=== PATIENT | male | born 1950 | race Caucasian/White ===

== ENCOUNTER 2018-07-19 15:50 | Outpatient (CLI) | payer OTHER ==
--- NOTE | 2018-07-19 16:47 | RAD ---
CERVICAL SPINE: Date: 07/19/18 HISTORY: Cervical disc degeneration. COMPARISON: None. FINDINGS: On the open-mouth projection, limited evaluation of odontoid process. Appropriate articulation of the lateral masses of C1 and C2 On the AP projection, there is multilevel facet hypertrophy. No malalignment. In the neutral lateral position, cervical spine is adequately assessed from C1 through C6. Limited ev aluation of the remainder of the cervical spine, as well as cervicothoracic junction. Moderate degene rative disc disease at C5-C6. No prevertebral soft tissue swelling. Predental space is normal. There is 2.7 mm of anterolisthesis of C4 upon C5 in the neutral position. Upon flexion, there is 5.2 mm of anterolisthesis of C4 upon C5. Upon extension, there is 2.6 mm of anterolisthesis. IMPRESSION: 1. Spondylolisthesis of C4 upon C5 (Grade I). 2. Moderate degenerative change at C5-C6. Limited evaluation of distal cervical spine and cervicotho racic junction. POS: [facility]
== END 2018-07-19 15:51 | disposition home or self-care (01) ==
LOC: BICRAD 15:50
PROVIDERS: ATTEND Neurological Surgery
DX: M50.322 Other cervical disc degeneration at C5-C6 level (principal); M47.12 Other spondylosis with myelopathy, cervical region; M48.02 Spinal stenosis, cervical region; M43.12 Spondylolisthesis, cervical region
CPT/HCPCS: 72050

== ENCOUNTER 2018-08-03 07:11 | Outpatient (CLI) | payer MEDICARE ==
[2018-08-03 11:22] LABS: Hemoglobin 15.8 g/dL (14.0-18.0); Mean Corpuscular HGB CONC 32.5 g/dL (32.0-36.0); Mean Corpuscular Hemoglobin 31.2 pg (27.0-31.0); Mean Corpuscular Volume 95.8 fL (78.0-98.0); Mean Platelet Volume 7.2 fL (7.4-10.4); Platelet Count 268 thou/uL (130-400); RBC Distribution Width 11.6 % (11.5-14.5); Red Blood Cell (RBC) Count 5.08 mill/uL (4.70-6.10); White Blood Cell (WBC) Count 8.1 thou/uL (4.8-10.8)
[2018-08-03 11:28] LABS: PTT 30.5 SEC (22.9-36.1); Prothrombin Time 13.3 SEC (12.0-14.7)
== END 2018-08-03 07:12 | disposition home or self-care (01) ==
LOC: LABBT 07:11
PROVIDERS: ATTEND Neurological Surgery
DX: Z01.812 Encounter for preprocedural laboratory examination (principal); M47.12 Other spondylosis with myelopathy, cervical region; M48.02 Spinal stenosis, cervical region
CPT/HCPCS: 85027; 85610; 85730

== ENCOUNTER 2018-08-03 11:30 | Inpatient (IN) | payer MEDICARE ==
--- NOTE | 2018-08-03 08:12 | HP ---
HISTORY OF PRESENT ILLNESS: This is a 67-year-old man, who reports to our office for evaluation of right arm pain. The patient states that he started experiencing these symptoms since 03/2018. The patient states he does not remember any injury at that time. He has been having what feels like a hundred ants burning the back of his arms, primarily from his elbow down to his wrist and up from there. He also complains of pain behind the right shoulder blade. Currently, the patient denies any decrease in fine motor skills or imbalance. The patient has been seeing for cervical injections as well as taking gabapentin. REVIEW OF SYSTEMS: A 10-point review of systems has been completed and is negative other than stated in the above HPI. PAST MEDICAL HISTORY: Hyperlipidemia, peripheral vascular disease, chewed tobacco, cataracts. PAST SURGICAL HISTORY: Cataract surgery, right carpal tunnel release in 2010, right leg angioplasty in 2001. FAMILY HISTORY: Mother is , diagnosed with cancer. SOCIAL HISTORY: The patient is a former smoker, quit in 1998. He uses alcohol. He does not use any other illicit drugs. He is sexually active. with two children. MEDICATIONS: 1. Aspirin 81 mg. 2. One-A-Day multivitamin [facility]. 3. Cilostazol. 4. Gabapentin. ALLERGIES: NO KNOWN DRUG ALLERGIES. PHYSICAL EXAMINATION: CONSTITUTION: The patient is alert and oriented, afebrile, normotensive, does not appear to be in any visible distress. HEENT: Head is normocephalic and atraumatic. Pupils are equal, round, reactive to light. Extraocular movements are intact. Hearing is intact. Moist mucous membranes. NECK: Normal, soft, supple. No masses are noted. Range of motion is intact and nonpainful. NEUROLOGIC: Awake, alert, oriented x3. Memory, attention, fund of knowledge, and language are normal. Cranial nerves: Cranial nerves 2 through 12 are grossly intact. Upper extremities, 5/5 bilateral strength in deltoids, biceps, wrist extension, 4/5 bilateral triceps, finger extension and finger intrinsics. Noticeable atrophy of bilateral hands. Negative Tinel's, negative Spurling's, Tandem walk 2 steps 5 steps. Brisk reflexes. IMAGING DATA: Cervical MRI, significant central stenosis at C3-C4, C4-C5, C5-C6. There is left foraminal narrowing at C6-C7. ASSESSMENT AND PLAN: Cervical spinal stenosis with degenerative disk disease with myelopathy. Dr. Andrade has offered surgery in C3 through C6 ACDF. The patient then consented and understands and states that he is willing to proceed with surgery. Job ID: [id number]
[2018-08-03 10:46] VITALS: BMI 26.6
[2018-08-06] MEDS ORDERED: Sodium Chloride 0.9% 10 ML ONE (06:16)
[2018-08-06] MEDS ORDERED: Thrombin 5000 UNITS/5 ML VIAL ONE (06:16)
[2018-08-06] MEDS ORDERED: CEFAZOLIN 2 GM/50 ML BAG ONE (06:39)
[2018-08-06] MEDS ORDERED: Fentanyl 100 MCG/2 ML VIAL ONE ×4 (06:57→12:24)
[2018-08-06] MEDS ORDERED: Acetaminophen 650 MG Suppository PR PRN (11:15)
[2018-08-06] MEDS ORDERED: Mag-Al 1200 mg/1200 mg/30 ML UDCUP PO PRN (11:15)
[2018-08-06] MEDS ORDERED: Ondansetron PF 4 MG/2 ML Vial IVP PRN (11:15)
[2018-08-06] MEDS ORDERED: CEFAZOLIN/Water 2 GM/20 ML SYRINGE SLOW IVP SCH (11:15)
[2018-08-06] MEDS ORDERED: diphenhydrAMINE 25 MG CAP PO PRN (11:15)
[2018-08-06] MEDS ORDERED: Promethazine 25 MG TAB PO PRN (11:15)
[2018-08-06] MEDS ORDERED: Milk Of Magnesia 30 ML UDCUP PO PRN (11:15)
[2018-08-06] MEDS ORDERED: tiZANidine HCl 4 MG TAB PO PRN (11:15)
[2018-08-06] MEDS ORDERED: diphenhydrAMINE 50 MG/ML VIAL IVP PRN (11:15)
[2018-08-06] MEDS ORDERED: Acetaminophen 325 MG TAB PO PRN (11:15)
[2018-08-06] MEDS ORDERED: Morphine 4 MG/ML VIAL SLOW IVP PRN ×2 (11:15)
[2018-08-06] MEDS ORDERED: Acetaminophen/Codeine 30-300mg Tablet PO PRN (11:15)
[2018-08-06] MEDS ORDERED: Promethazine HCl 25 MG/ML VIAL IM PRN (11:17)
[2018-08-06] MEDS ORDERED: Meperidine HCl/PF 25 MG/ML VIAL SLOW IVP PRN (11:17)
[2018-08-06] MEDS ORDERED: HYDROmorphone 2 MG/ML VIAL SLOW IVP PRN (11:17)
[2018-08-06] MEDS ORDERED: Promethazine HCl 25 MG/ML VIAL SLOW IVP PRN (11:17)
[2018-08-06] MEDS ORDERED: Non-Formulary Item 1 EACH (Acetaminophen [Tylenol] 650 MG) PO PRN (11:19)
--- NOTE | 2018-08-06 11:42 | OP ---
DATE OF PROCEDURE: 08/06/2018 MICROELECTRONICS ASSEMBLER: Ariane Dowell PA-C PREOPERATIVE INDICATION: Prevent further neurological deterioration. PREOPERATIVE DIAGNOSES: Intervertebral disk disease with cord compression and myelopathy, C3-C4, C4-C5, and C5-C6. POSTOPERATIVE DIAGNOSES: Intervertebral disk disease with cord compression and myelopathy, C3-C4, C4-C5, and C5-C6. PROCEDURES PERFORMED: Anterior cervical diskectomy, intervertebral arthrodesis, placement of intervertebral biomechanical device, anterior cervical plating, C3-C4, C4-C5, and C5-C6, local morselized autograft, morselized allograft, and operating microscope. PREOPERATIVE MEDICATION: Ancef 2 g IV. DRAIN NUMBER: Zero. DRAIN TYPE: None. DESCRIPTION OF PROCEDURE: The patient was brought to the operating room. General endotracheal anesthesia was induced. The patient was positioned carefully on the operating table with his head supported by a gel-filled donut-shaped headrest. A lateral fluoro radiograph was used to plan an incision. The right side of the neck was sterilely prepped and draped. We opened with a 10 blade knife and controlled bleeding with bipolar cautery. We dissected sharply to the platysma and cut this muscle in line with our incision. We continued dissecting medial to the sternocleidomastoid and lateral to the trachea and esophagus until we arrived at the prevertebral space. We placed a marker at C3-C4 and took a lateral fluoro radiograph to confirm the levels upon which we were operating. We then elevated the longus colli muscles off the anterior surface of C3, C4, C5, and C6. We placed self-retaining retractors beneath these muscles. We placed distraction pins at C3 and C5, and we distracted across the intervening interspaces with the [place] distractor. We incised the interspaces with a 15 blade knife and removed disk contents using curettes and rongeurs. As we approached the posterior longitudinal ligament, we brought the operating microscope into the field. Under microscopic magnification and using microsurgical techniques, we carefully removed the remainder of the intervertebral disk. We accessed the ventral epidural space with a microcurette and using [place] rongeurs, we removed posterior longitudinal ligament, posterior osteophytes, and the remainder of the disk material across the entire interspace from one neuro foramen all the way to the other at C3-C4 and again at C4-C5. At the completion of the decompression, there was no longer any dural impingement. We prepared the endplates for grafting using curettes and measured the height of each of these two interspaces to 8 mm. Osteophytes removed during our decompression were cleaned of soft tissue, morcellized, and added to demineralized bone matrix to form a fusion substrate. Two separate 8 mm PEEK intervertebral grafts were brought into the field. These were loaded with our fusion substrate and advanced into the respective interspaces under radiographic guidance to the appropriate depth. We then removed our distraction pin from C3 and moved it down to C6. The self-retaining lateral retractor was moved under the longus colli muscles at C5-C6 and a [place] distractor distracted across the interspace. Under the operating microscope, we incised the disk space, removed disk contents, accessed the ventral epidural space with a microcurette, and removed posterior osteophytes and posterior longitudinal ligament with [place] rongeurs across the entire interspace. At the completion of our decompression at C5-C6, both neuro foramina were widely decompressed and the dura had no impingement across the entire interspace. We prepared the endplates for grafting with curettes and measured the height of the interspace to 7 mm. A 7 mm PEEK intervertebral graft was brought into the field. This was loaded with our mixture of demineralized bone matrix and morselized autograft and advanced into the interspace under radiographic guidance to the appropriate depth. We then took the operative microscope out of the field and removed our distraction pins. A 57 mm anterior cervical plate was brought into the field. We drilled the pilot manager holes through the plate into the vertebral bodies from C3-C6 and we affixed the plate using 14 and 16 mm screws. We used fixed angle screws at C6 and variable angle screws at C4, C5, and C6. We engaged the locking mechanism over each of the eight screws. AP and lateral fluoro radiographs confirmed adequate positioning of our instrumentation. We irrigated copiously with bacitracin irrigation. We closed the wound in anatomical layers and we applied a sterile dressing. This was a clean case, no contamination. Job ID: [id number]
[2018-08-06] MEDS ORDERED: PHENYLEPHRINE-NS 100 MCG/ML 10 ML SYRINGE ONE (15:21)
[2018-08-06] MEDS ORDERED: Glycopyrrolate 0.2 MG/ML 5 ML SYRINGE ONE (15:21)
[2018-08-06] MEDS ORDERED: Ketorolac Tromethamine 30 MG/ML VIAL ONE (15:21)
[2018-08-06] MEDS ORDERED: PROPOFOL 200 MG/20 ML VIAL ONE (15:21)
[2018-08-06] MEDS ORDERED: Lidocaine 1% PF 5 ML VIAL ONE (15:21)
[2018-08-06] MEDS ORDERED: Dexamethasone 20 MG/5 ML VIAL ONE (15:21)
[2018-08-06] MEDS ORDERED: ePHEDrine 50 MG/ML VIAL ONE (15:21)
[2018-08-06] MEDS ORDERED: Ondansetron PF 4 MG/2 ML Vial ONE (15:21)
[2018-08-06] MEDS ORDERED: Rocuronium Bromide 10 MG/ML (10ML VIAL) ONE (15:21)
[2018-08-06] MEDS: Gabapentin 300 MG CAP PO SCH ×2 (15:41→20:03)
[2018-08-06] MEDS: CEFAZOLIN 2 GM/50 ML-DEXTROSE 2 GM in Premix Bag 1 BAG IVPB SCH ×2 (15:41→22:13)
[2018-08-06] MEDS: Sodium Chloride 0.9% 1,000 ML IV SCH (18:16)
[2018-08-06] MEDS: Cilostazol 100 MG TAB PO SCH (18:16)
[2018-08-06] MEDS: Acetaminophen/Codeine 30-300mg Tablet PO PRN (22:12)
[2018-08-07] MEDS ORDERED: Chloraseptic Spray 180 ml Bottle PO PRN (02:50)
[2018-08-07] MEDS: Sodium Chloride 0.9% 1,000 ML IV SCH (05:48)
[2018-08-07] MEDS ORDERED: Tamsulosin HCl 0.4 MG CAP PO SCH (06:00)
[2018-08-07] MEDS: Cilostazol 100 MG TAB PO SCH (06:33)
[2018-08-07] MEDS: Acetaminophen/Codeine 30-300mg Tablet PO PRN (06:34)
--- NOTE | 2018-08-07 07:31 | PRG ---
DATE OF SERVICE: 08/07/2018 SUBJECTIVE: Mr. Spencer is one day out from a three-level ACDF for myelopathy. His arms and hands feel better. Yesterday, he was eating both lunch and dinner. Overnight, he began to have some swallowing difficulty. His neck feels a little bit swollen. OBJECTIVE: The patient has remained afebrile and his vital signs are stable. I examined the incision. There was no tension in the neck. There is no external swelling. Steri-Strips are well applied. The skin is well approximated. ASSESSMENT AND PLAN: I asked Mr. Spencer to use a chin tuck method for swelling. He is going to mobilize his trachea. We will use some ice to combat any swelling. I think that his swelling was normal immediately following surgery and worsened overnight suggest some swelling issues from having his retractor in there for such an extended period of time. This should improve and return to normal. He is going to attempt breakfast and if he is getting enough calories down, will discharge home this morning. We will follow up in 2 weeks. They have our office number should they need attention before then. We went over home going activity restrictions, wound care, and followup arrangements and they expressed their understanding. Job ID: [id number]
[2018-08-07 07:50] VITALS: BP 143/75; TEMP 97.9
[2018-08-07] MEDS ORDERED: Multivitamin W/ Minerals 1 TAB PO SCH (09:00)
[2018-08-07] MEDS ORDERED: Gabapentin 300 MG CAP PO SCH ×2 (09:00→21:00)
== END 2018-08-07 09:40 | disposition home or self-care (01) | DRG 472 ==
LOC: SURG A 08-06 05:42 → EDSTATUS 08-06 11:30 → SURG B 08-06 12:43
PROVIDERS: ADMIT Neurological Surgery; ATTEND Neurological Surgery
PROC: 0RG20A0 Fusion of 2 or more Cervical Vertebral Joints with Interbody Fusion Device, Anterior Approach, Anterior Column, Open Approach (ICD-10-PCS; principal; 2018-08-06)
PROC: 0RT30ZZ Resection of Cervical Vertebral Disc, Open Approach (ICD-10-PCS; 2018-08-06)
DX: M48.02 Spinal stenosis, cervical region (principal); M50.022 Cervical disc disorder at C5-C6 level with myelopathy; E78.5 Hyperlipidemia, unspecified; I73.9 Peripheral vascular disease, unspecified; Z98.49 Cataract extraction status, unspecified eye; Z98.890 Other specified postprocedural states; Z87.891 Personal history of nicotine dependence; Z79.82 Long term (current) use of aspirin
CPT/HCPCS: 76000; 85027; 85610; 85730; C1713; C1776; J0131; J1100; J1885; J2001; J2405; J2704; J3010; J3490

== ENCOUNTER 2018-10-02 15:03 | Outpatient (CLI) | payer MEDICARE ==
--- NOTE | 2018-10-02 15:24 | RAD ---
FCervical spine 5 views 10/02/2018 COMPARISON: 07/19/2018 HISTORY: Reevaluate cervical spine following surgery FINDINGS: Open-mouth odontoid view demonstrates a normal appearing dens and C1-2 articulation. Fronta l imaging demonstrates multilevel bilateral facet and uncovertebral osteophyte formation. Anterior di scectomy and fusion hardware is present at the C3-4, C4-5, and C5-6 levels. At C6-7 there is disc spa ce narrowing and anterior osteophyte formation. There is superior endplate irregularity involving C5 which may be on the basis of prior trauma or degenerative change. No significant anterolisthesis or r etrolisthesis. There is mild soft tissue swelling anterior to the inferior aspect of the fusion plate consistent with recent surgery. IMPRESSION: Postoperative and degenerative changes of the cervical spine as detailed above.
== END 2018-10-02 15:04 | disposition home or self-care (01) ==
LOC: TBSIIMAG 15:03
PROVIDERS: ATTEND Neurological Surgery
DX: M50.20 Other cervical disc displacement, unspecified cervical region (principal); M54.2 Cervicalgia; M47.812 Spondylosis without myelopathy or radiculopathy, cervical region; Z98.890 Other specified postprocedural states
CPT/HCPCS: 72040

== ENCOUNTER 2023-06-13 13:56 | Outpatient (CLI) | payer OTHER | END 2023-06-13 13:57 | disposition home or self-care (01) | LOC: BICCT 13:56 | PROVIDERS: ATTEND Psychiatry & Neurology Neurology | DX: G30.8 Other Alzheimer's disease (principal); G31.9 Degenerative disease of nervous system, unspecified; I67.82 Cerebral ischemia | CPT/HCPCS: 70450 ==

== ENCOUNTER 2023-06-30 08:15 | Observation (INO) | payer OTHER ==
[2023-06-30] MEDS ORDERED: LORazepam 2 MG/ML SYR.(CARPUJECT) ONE (08:29)
[2023-06-30 08:42] LABS: #Eosinphils 0.2 thou/uL (0.0-0.7); #Monocytes 0.7 thou/uL (0.11-0.59); #Neutrophils 5.5 thou/uL (1.40-6.50); %Basophils 0.3 % (0.0-1.0); %Eosinophils 2.3 % (0.0-10.0); %Lymphocytes 26.5 % (21.0-51.0); %Neutrophils 62.6 % (42.0-75.0); Hematocrit 42.4 % (42.0-52.0); Hemoglobin 13.9 g/dL (14.0-18.0); Mean Corpuscular HGB CONC 32.8 g/dL (32.0-36.0); Mean Corpuscular Hemoglobin 31.3 pg (27.0-31.0); Mean Corpuscular Volume 95.5 fl (78.0-98.0); Mean Platelet Volume 9.8 fL (7.4-10.4); Platelet Count 246 10x3/uL (130-400); RBC Distribution Width 12.7 % (11.5-14.5); Red Blood Cell (RBC) Count 4.44 mill/uL (4.70-6.10); White Blood Cell (WBC) Count 8.8 10x3/uL (4.8-10.8)
[2023-06-30 09:05] LABS: ALT (SGPT) 13 U/L (8-55); AST (SGOT) 20 U/L (5-34); Albumin 3.6 g/dL (3.4-4.8); Alkaline Phosphatase 96 U/L (40-110); Anion Gap 15 mmol/L (10-20); BUN (Urea Nitrogen) 13 mg/dL (8.4-25.7); Bilirubin, Total 0.4 mg/dL (0.2-1.2); Calc. Creatinine Clearance 0 mL/min (70-130); Calcium 8.6 mg/dL (7.8-10.44); Carbon Dioxide 20 mmol/L (23-31); Chloride 107 mmol/L (98-107); Estimated GFR 94; Globulin 2.8 g/dL (2.4-3.5); Glucose 96 mg/dL (83-110); Potassium 4.3 mmol/L (3.5-5.1); Protein, Total 6.4 g/dL (5.8-8.1); Sodium 138 mmol/L (136-145)
[2023-06-30] MEDS ORDERED: Boostrix 0.5 ML (Tdap) VIAL (>/=7 yrs of age) ONE (09:05)
[2023-06-30 09:16] LABS: Troponin I Less than 0.010 ng/mL (< 0.028)
== END 2023-06-30 12:26 | disposition home or self-care (01) ==
LOC: ERS 08:15 → ERHOLD 11:45
PROVIDERS: ADMIT Hospitalist; ATTEND Hospitalist
DX: R55 Syncope and collapse (principal); I10 Essential (primary) hypertension; I73.9 Peripheral vascular disease, unspecified; F03.90 Unspecified dementia, unspecified severity, without behavioral disturbance, psychotic disturbance, mood disturbance, and anxiety; R47.01 Aphasia; W19.XXXA Unspecified fall, initial encounter
CPT/HCPCS: 70450; 72125; 80053; 84484; 85025; 90471; 90715; 93005; 96374; 99284; J2060